=== PATIENT | female | born 1995 | race Caucasian/White ===

== ENCOUNTER 2016-08-16 10:43 | Emergency (ER) ==
--- NOTE | 2016-08-16 11:20 | PROVIDER DOCUMENTATION ---
HPI-Abdominal Pain/GI Problem - General Source: patient, other (teacher) - History of Present Illness-ABD Nature of Presenting Problems: pt is a 20 y/o F present to the Er with complaints of belly pain, pt states she is having kriss vásquez contractions. Teacher at bedside. Pt states the contractions started around 0830 this morning they are 3-4 mins apart and last about 15 seconds. pt denies burning while urinating, hematuria, diarrhea, constipation cough, runny nose. pt states she had an OBGYN appointment friday and she called the office this morning they told her to take a tylenol , lay on her left side, drink some water and if not improvement go to labor and delivery. Abdominal Pain Onset Location: reports: [facility] Pain Radiation: reports: no radiation Quality of Pain: reports: cramping Onset/Duration: reports: this morning Timing: reports: intermittent Exposure to sick contacts?: No Modifying Factors: improves with: nothing Associated Symptoms: denies: chest pain, cough, diarrhea, fatigue, fever/chills , heartburn Similar Symptoms Previously?: No Recently seen or treated by another doctor?: Yes <Leonie Lawrence - Last Filed: 08/16/16 12:14> <Pedrito Madison - Last Filed: 08/16/16 13:20> - General Chief Complaint: Abdominal Pain Stated Complaint: KRISS [id number] Time Seen by Provider: 08/16/16 11:00 Allergies/Adverse Reactions: Patient Allergies Allergy/AdvReac Type Severity Reaction Status Date / Time No Known Allergies Allergy Verified 05/03/12 18:58 Home Medications: Home Medication List Medication Instructions Recorded Confirmed Last Taken Type Prenat Vit Comb.10/Iron/FA/Dha 1 each PO DAILY 08/16/16 08/16/16 08/16/16 History [Vitafol-Ob+Dha Combo Pack] Review of Systems - Adult - REVIEW OF SYSTEMS - ADULT Constitutional: denies: chills, fever Eyes: reports: no symptoms reported Ears, Nose, Mouth & Throat: reports: no symptoms reported Cardiovascular: reports: no symptoms reported Respiratory: reports: no symptoms reported Gastrointestinal: reports: abdominal pain. denies: hematemesis, diarrhea, vomiting Genitourinary: reports: discharge (very minimal). denies: hematuria, incontinence Musculoskeletal: reports: no symptoms reported Integumentary: denies: hives, hair loss Neurological: reports: no symptoms reported Psychiatric: reports: no symptoms reported Endocrine: reports: no symptoms reported Hematologic/Lymphatic: reports: no symptoms reported Allergic/Immunologic: reports: no symptoms reported All Other Systems: Reviewed and Negative <Leonie Lawrence - Last Filed: 08/16/16 12:14> Past History - Adult - PAST MEDICAL HISTORY-ADULT Review of Records: reports: Nursing Assessment Review - IMMUNIZATION STATUS Childhood Immunizations: See Nurse Assessment Flu Vaccine: See Nurse Assessment - SOCIAL HISTORY Smoking: denies Substance Use: none/never Alcohol Use Frequency: never <Leonie Lawrence - Last Filed: 08/16/16 12:14> Physical Exam-General - PHYSICAL EXAM-ADULT Initial Vital Signs Reviewed: Yes - CONSTITUTIONAL General Appearance: appears well, alert, no apparent distress - EYES Eyes: PERRL/EOMI, pink conjunctivae - HEAD, EARS, NOSE, MOUTH & THROAT HENMT: moist mucous membranes - NECK Neck: non-tender, full range of motion - RESPIRATORY Respiratory: chest non-tender, lungs clear, normal breath sounds - CARDIOVASCULAR Cardiovascular: normal peripheral pulses, regular rate, rhythm - GASTROINTESTINAL (ABDOMEN) Abdominal Exam: normal bowel sounds, non tender, soft, tenderness (TTP lower abdomen) - MUSCULOSKELETAL Extremity: normal range of motion, non-tender, normal gait - SKIN Integumentary: normal color, normal turgor, warm/dry - NEUROLOGIC Neurologic: grossly normal, no motor/sensory deficits - PSYCHIATRIC Psych/Mental Status: normal mood/affect, normal thought content, normal thought process, oriented x 3 <Leonie Lawrence - Last Filed: 08/16/16 12:14> Progress - PLAN OF CARE/RESULTS Progress/Plan/Lab Results: Vital Signs - 24 hr 08/16/16 10:53 Temperature 97.8 F Pulse Rate 83 Respiratory 18 Rate Blood Pressure 144/61 O2 Sat by Pulse 100 Oximetry Laboratory Tests 08/16/16 11:30 Urine Source CLEAN CATCH Urine Color YELLOW Urine Clarity CLEAR Urine pH 7.0 Ur Specific [place] 1.000 Urine Protein NEGATIVE Urine Ketones NEGATIVE Urine Blood NEGATIVE Urine Nitrite NEGATIVE Urine Bilirubin NEGATIVE Urine Urobilinogen NORMAL Urine WBC NEGATIVE Urine Glucose NEGATIVE Md spoke with OBGYN at 12:14. OBGYN told Md to give procardia 10 or 20 depending on BP reading and 1 liter of LR. OBGYN is coming to see pt in ER <Leonie Lawrence - Last Filed: 08/16/16 12:14> Departure <Leonie Lawrence - Last Filed: 08/16/16 12:14> - Departure Time of Disposition Order: 13:18 Certified Medical Emergency: Emergent <Pedrito Madison - Last Filed: 08/16/16 13:20> - Departure DIAGNOSIS: Kriss Vásquez' contraction Disposition: HOME 01 Condition: Stable Additional Instructions: take procardia per dr yasmeen ED Follow Up Instructions: You have been treated by a care provider in the Emergency Department. These instructions are being provided to you so you can have an understanding of how to care for yourself upon discharge. Upon discharge from the Emergency Department, you are responsible for making arrangements for follow-up care by a physician of your choice. Take all prescribed medications as directed. Return to the Emergency Department immediately for any new or worsening symptoms. You may call the Physician Referral phone number at [phone] to obtain a list of Physicians who are taking new patients. Referrals: Yandel Phoenix MD [Primary Care Provider] - Forms: Return to School/Parent Work Instructions: Abdominal Pain, Adult, [id number] Attestation - Scribe Verification/Attestation Scribe:: Leonie Lawrence Acting as Scribe for:: Pedrito Madison Scribe documention review:: This chart was documented by a scribe and accurately reflects the service the provider performed and the decisions made by the provider. <Leonie Lawrence - Last Filed: 08/16/16 12:14> Physician Attestation
[2016-08-16 11:48] LABS: URINE CULTURE PL NEEDED? NO; URINE SOURCE CLEAN CATCH
[2016-08-16 12:01] LABS: BILIRUBIN URINE NEGATIVE (NEGATIVE); BLOOD URINE NEGATIVE (NEGATIVE); CLARITY CLEAR (CLEAR); COLOR YELLOW; GLUCOSE URINE NEGATIVE (NEGATIVE); LEUKOCYTES URINE NEGATIVE (NEGATIVE); NITRITE URINE NEGATIVE (NEGATIVE); PROTEIN URINE NEGATIVE (NEGATIVE); UROBILINOGEN URINE NORMAL
[2016-08-16] MEDS ORDERED: PROCARDIA PO ONE (12:18)
[2016-08-16] MEDS ORDERED: LR 1,000 ML IV ONE (12:19)
[2016-08-16 13:16] VITALS: BP 120/62
--- NOTE | 2016-08-18 20:58 | OB/GYN PROGRESS NOTE ---
Progress Note OB - . OB Progress Note: Consulted by ED to evaluate 20yo patient at 19 weeks with contractions. Patient's contractions have not been relieved by fluids or changing positions. Denies leakage of fluid or vaginal bleeding. Reports good movement. Exam: Abdomen: Contractions palpated, FHT 140s Cervix: closed/thick/long, no blood A/P: 20yo at 19 weeks gestation with contractions -IVF LR bolus -initiate procardia 20mg bolus followed by 10mg q8hrs -patient to follow up with primary OB regarding further management Update: contractions subsided following treatment -Jolie Díaz MD [employer] REPRESENTATIVE
== END 2016-08-16 13:28 | disposition home or self-care (01) ==
LOC: P.ED 10:43
DX: O47.03 False labor before 37 completed weeks of gestation, third trimester (principal); O26.892 Other specified pregnancy related conditions, second trimester; R10.12 Left upper quadrant pain; R10.819 Abdominal tenderness, unspecified site; N89.8 Other specified noninflammatory disorders of vagina; Z3A.19 19 weeks gestation of pregnancy
CPT/HCPCS: 81001; 96360; J7120